=== PATIENT | female | born 1960 | race Caucasian/White ===

== ENCOUNTER 2019-07-08 19:35 | Emergency (ER) | payer MEDICAID ==
[~2019-07-08] VITALS: Ht 160 cm; Wt 93.4 kg
[~2019-07-08 19:35] MED LIST: FER300 PO; LAC PO; LEVAQUIN750 MG PO
[2019-07-08 20:20] LABS: BASOPHIL % 1.2 % (0-2); PLATELET COUNT 277 x10^3mcL (130-400)
[2019-07-08 20:25] LABS: RED CELL DISTRIBUTION WIDTH 19.9 % (11.5-14.5)
[2019-07-08 20:35] LABS: ovalocyte/elliptocyte 1+; rbc morphology (normal/abnorm) ABNORMAL (NORMAL)
[2019-07-08 20:41] LABS: UA SPECIFIC GRAVITY 1.015 (1.005-1.035); microscopic required? YES; urine erythrocyte 3+ (NEGATIVE)
[2019-07-08 20:41] LABS: CALCIUM 8.1 mg/dL (8.5-10.1); CARBON DIOXIDE 28.5 mmol/L (21-32); CHLORIDE SERUM 104 mmol/L (98-107); CREATININE SERUM 0.7 mg/dL (0.6-1.0); GFR1 > 60 mL/min; POTASSIUM SERUM 4.1 mmol/L (3.5-5.1); SODIUM SERUM 140 mmol/L (136-145)
[2019-07-08 20:45] LABS: ALBUMIN 3.6 g/dL (3.4-5.0); ALKALINE PHOSPHATASE 111 U/L (46-116); BILIRUBIN TOTAL 1.2 mg/dL (0.20-1.00); TOTAL PROTEIN, SERUM 7.9 g/dL (6.4-8.2)
[2019-07-08 20:48] LABS: GLUCOSE SERUM 114 mg/dL (74-106)
[2019-07-08 20:58] LABS: AST/SGOT 29 U/L (15-37)
[2019-07-08 21:14] LABS: ALT/SGPT 10 U/L (14-59)
[2019-07-08 22:07] VITALS: BP 133/69
== END 2019-07-08 22:26 | disposition home or self-care (01) ==
LOC: ED 19:35
PROVIDERS: Emergency Medicine
DX: D25.9 Leiomyoma of uterus, unspecified (principal); Z98.51 Tubal ligation status
CPT/HCPCS: 36415